=== PATIENT | female | born 1995 | race African-American/Black ===

== ENCOUNTER 2024-12-20 11:09 | Emergency (ER) | payer OTHER ==
[~2024-12-20] VITALS: Ht 172.7 cm; Wt 94.0 kg
[2024-12-20 11:16] VITALS: O2SAT 99
[2024-12-20] MEDS: MAGNESIUM/ALUMINUM HYDROXIDE/SIMETHICONE 30ML UDC PO ONE (12:50)
[2024-12-20] MEDS: FAMOTIDINE 20MG TABLET PO ONE (12:51)
[2024-12-20] MEDS: ONDANSETRON 4MG ODT PO ONE (12:51)
[2024-12-20 12:52] LABS: HEMATOCRIT. 41.4 % (36.0-48.0); HEMOGLOBIN. 13.8 g/dL (12.0-16.0); MEAN PLATELET VOLUME 8.1 fl (7.4-10.4); PLATELET 266 x1000/uL (130-400); RED BLOOD CELL COUNT 5.23 mill/uL (4.2-5.4); RED CELL DISTRIBUTION WIDTH 15.8 % (11.6-14.6)
[2024-12-20 13:06] LABS: CREATININE 0.8 mg/dL (0.6-1.0)
[2024-12-20 13:07] LABS: UREA NITROGEN BLOOD 9 mg/dL (9-23)
[2024-12-20 13:08] LABS: ASPARTATE AMINOTRANSFERASE 16 IU/L (<34)
[2024-12-20 13:09] LABS: BILIRUBIN DIRECT 0.5 mg/dL (<=3.0); BILIRUBIN TOTAL 1.6 mg/dL (0.1-1.0); PROTEIN TOTAL 8.0 g/dL (6.0-8.3)
[2024-12-20 13:17] LABS: HCG SCREEN NEGATIVE
[2024-12-20] MEDS: SODIUM CHLORIDE 0.9% 1,000 ML IV ONE (13:23)
[2024-12-20 13:29] LABS: BAND% 3.0 % (1.0-6.0); EOSINOPHILS % MANUAL 1.0 % (0.0-5.0); LYMPHOCYTES % MANUAL 9.0 % (20.0-60.0); MONOCYTES % MANUAL 2.0 % (2.0-8.0); NEUTROPHILS % MANUAL 85.0 % (45.0-75.0); PLATELET ESTIMATE NORMAL
[2024-12-20] MEDS: KETOROLAC 30MG/ML VIAL IV NR (14:41)
[2024-12-20] MEDS ORDERED: ONDA-239 PO (14:44)
[2024-12-20 15:06] VITALS: BP 116/65; PULSE 70; RESP 22; TEMP 36.6; O2SAT 99
== END 2024-12-20 15:08 | disposition home or self-care (01) ==
LOC: ER 11:09
DX: K52.9 Noninfective gastroenteritis and colitis, unspecified (principal)
CPT/HCPCS: 80076; 80048; 80320; 84703; 83690; 85025; 36415; 96361; 96374; 99284; Q0162; J1885; J7030; G0480